=== PATIENT | male | born 1995 | race Caucasian/White ===

== ENCOUNTER 2021-12-09 20:07 | Emergency (ER) | payer SELFPAY ==
[2021-12-09 20:11] VITALS: BP 129/77; PULSE 81; TEMP 97; BMI 27.7
[2021-12-09] MEDS ORDERED: DIPHTH,PERTUSS(ACELL),TET 0.5 ML DISP.SYRIN IM ONE ×2 (21:17→22:54)
[2021-12-09] MEDS ORDERED: ceFAZolin SODIUM 1 GM VIAL IM ONE (21:35)
[2021-12-09] MEDS ORDERED: ceFAZolin SODIUM 1 GM VIAL ONE (22:56)
== END 2021-12-09 23:45 | disposition home or self-care (01) ==
LOC: JERFT 20:07
PROC: 3E02329 Introduction of Other Anti-infective into Muscle, Percutaneous Approach (ICD-10-PCS; principal; 2021-12-09)
PROC: 3E0234Z Introduction of Serum, Toxoid and Vaccine into Muscle, Percutaneous Approach (ICD-10-PCS; 2021-12-09)
DX: S62.661B Nondisplaced fracture of distal phalanx of left index finger, initial encounter for open fracture (principal); W31.2XXA Contact with powered woodworking and forming machines, initial encounter
CPT/HCPCS: 73130-TC-LT-FY; 90715; 99284-25

== ENCOUNTER 2021-12-19 13:51 | Emergency (ER) | payer SELFPAY ==
[2021-12-19 13:58] VITALS: BP 143/83; PULSE 71; TEMP 97.8; BMI 27.7
== END 2021-12-19 15:21 | disposition home or self-care (01) ==
LOC: JERFT 13:51
DX: Z48.02 Encounter for removal of sutures (principal)
CPT/HCPCS: 99281-25